=== PATIENT | male | born 1975 | race Caucasian/White ===

== ENCOUNTER → 2018-05-27 | Outpatient (REF) | payer OTHER ==
[2018-05-27 11:57] LABS: BASO % 0.4 % (0.0-1.0); EOS # 0.1 10^3/uL (0.0-0.50); EOS % 1.5 % (0.0-3.0); HEMATOCRIT 42.4 % (42.0-52.0); HEMOGLOBIN 14.9 g/dl (13.5-17.5); IMMATURE GRANULOCYTE % 0.4 % (0-3.0); LYMPH # 1.1 10^3/uL (1.5-4.5); LYMPH % 21.6 % (24.0-44.0); MEAN CORPUSCULAR HEMOGLOBIN 31.8 pg (27.0-33.0); MEAN CORPUSCULAR HGB CONC 35.1 g/dl (32.0-36.5); MEAN CORPUSCULAR VOLUME 90.6 fl (80.0-96.0); MONO # 0.6 10^3/uL (0.0-0.8); MONO % 11.6 % (0.0-5.0); NEUTROPHILS # 3.3 10^3/uL (1.8-7.7); NEUTROPHILS % 64.5 % (36.0-66.0); PLATELET COUNT, AUTOMATED 305 10^3/uL (150-450); RED BLOOD COUNT 4.68 10^6/uL (4.30-6.10); RED CELL DISTRIBUTION WIDTH 11.8 % (11.5-14.5); WHITE BLOOD COUNT 5.2 10^3/uL (4.0-10.0)
[2018-05-29 15:02] LABS: GASTRIN < 10 pg/mL (0-115)
== END ==
LOC: M SFHCPLAZ 09:48
DX: K92.1 Melena (principal)
CPT/HCPCS: 82941

== ENCOUNTER → 2018-06-15 | Outpatient (CLI) | payer OTHER ==
[~2018-06-15] MED LIST: E-Z-PAQUE 96% w/w SUSP 176GM BTL As Ordered
== END ==
LOC: M RAD 07:44
DX: K92.1 Melena (principal)
CPT/HCPCS: 74250

== ENCOUNTER 2019-01-11 01:00 | Emergency (ER) | payer OTHER ==
[~2019-01-11] VITALS: Ht 188 cm; Wt 100.0 kg
[2019-01-11 02:11] LABS: HEMATOCRIT 47.3 % (42.0-52.0); HEMOGLOBIN 16.1 g/dl (13.5-17.5); MEAN CORPUSCULAR HEMOGLOBIN 31.7 pg (27.0-33.0); MEAN CORPUSCULAR VOLUME 93.1 fl (80.0-96.0); PLATELET COUNT, AUTOMATED 249 10^3/uL (150-450); RED BLOOD COUNT 5.08 10^6/uL (4.30-6.10); WHITE BLOOD COUNT 8.8 10^3/uL (4.0-10.0)
[2019-01-11] MEDS ORDERED: carBAMazepine 200 MG TAB PO ONE (02:30)
[2019-01-11] MEDS ORDERED: dexameTHASONE 20 MG/5 ML VIAL (J1100) IV ONE (02:30)
[2019-01-11 02:36] LABS: ALBUMIN 3.6 GM/DL (3.2-5.2); ALT/SGPT 27 U/L (12-78); BILIRUBIN,TOTAL 0.4 MG/DL (0.2-1.0); BLOOD UREA NITROGEN 14 MG/DL (7-18); CALCIUM LEVEL 8.7 MG/DL (8.5-10.1); CARBON DIOXIDE LEVEL 29 MEQ/L (21-32); CHLORIDE LEVEL 103 MEQ/L (98-107); CREATININE FOR GFR 1.28 MG/DL (0.70-1.30); GLOMERULAR FILTRATION RATE > 60.0 (>60); GLUCOSE, FASTING 99 MG/DL (70-100); POTASSIUM SERUM 4.2 MEQ/L (3.5-5.1); SODIUM LEVEL 139 MEQ/L (136-145); TOTAL PROTEIN 7.4 GM/DL (6.4-8.2)
--- NOTE | 2019-01-11 02:37 | REPVR ---
EXAM: CT Head Without Contrast EXAM DATE/TIME: 01/11/2019 1:58 AM CLINICAL HISTORY: 43 years old, male; Pain; Headache; Additional info: Headache with vision changes TECHNIQUE: Axial computed tomography images of the head/brain without contrast. All CT scans at this facility use at least one of these dose optimization techniques: automated exposure control; mA and/or kV adjustment per patient size (includes targeted exams where dose is matched to clinical indication); or iterative reconstruction. COMPARISON: No relevant prior studies available. FINDINGS: Brain: No intracranial mass, mass effect or midline shift. No acute intracranial hemorrhage. No CT evidence of acute cortical infarct. Ventricles, cisterns, and sulci are normal in size for age. Bones/joints: No calvarial fracture or destructive process. Sinuses: Mucosal thickening or fluid is present diffusely in the paranasal sinuses. Mastoid air cells: Mastoid air cells are normally aerated. Orbits: Imaged orbits are unremarkable. Soft tissues: No focal extracranial soft tissue swelling. IMPRESSION: 1. No acute or concerning focal intracranial abnormality. 2. Mild diffuse paranasal sinus fluid and mucosal thickening. Sinusitis can be a source of headaches Electronically signed by: Colton Jacobson On 01/11/2019 02:37:19 AM
[2019-01-11 02:49] LABS: ERYTHROCYTE SEDIMENTATION RATE 7 mm/hr (0-15)
[2019-01-11 04:30] VITALS: BP 125/73
--- NOTE | 2019-01-11 05:49 | REPVR ---
EXAM: MR Head Without Contrast EXAM DATE/TIME: 01/11/2019 3:11 AM CLINICAL HISTORY: 43 years old, male; Signs and symptoms; Weakness, extremity; Left; Patient HX: Lt sided heaviness; Additional info: L trigeminal symptoms TECHNIQUE: MR of the head without contrast. COMPARISON: MRA BRAIN W/O CONTRAST 01/11/2019 4:40 AM FINDINGS: Brain: Normal. No hemorrhage. No significant white matter disease. No edema. Ventricles: Normal. No ventriculomegaly. Bones/joints: Unremarkable. Soft tissues: Normal. Sinuses: There is significant bilateral maxillary sinuses and ethmoidal air cells mucosal thickening. Mastoid air cells: Normal as visualized. No mastoid effusion. Orbits: Unremarkable. Vertebral arteries: The right vertebral artery is tortuous seen coursing to the left anterior and to the left of the left vertebral artery where it is then joined by the left vertebral artery to form the basilar artery. IMPRESSION: 1. No acute intracranial abnormality seen. 2. Markedly tortuous right vertebral artery coursing to the left anterior and extending to the left of the left vertebral artery before joining the left vertebral artery to form the basilar artery. The artery appears to come near the left trigeminal artery however doesn't appear to touch it. 3. Significant bilateral maxillary and ethmoidal sinus mucosal thickening. Correlate with sinusitis. Electronically signed by: Segundo Garrett On 01/11/2019 05:49:12 AM
--- NOTE | 2019-01-11 05:58 | REPVR ---
EXAM: MR Angiogram Head Without Contrast, Arteries EXAM DATE/TIME: 01/11/2019 3:11 AM CLINICAL HISTORY: 43 years old, male; Signs and symptoms; Weakness; Patient HX: Lt sided heaviness; Additional info: L trigeminal symptoms TECHNIQUE: MR angiogram head without contrast. Exam focused on the arteries. COMPARISON: CT Head without contrast 01/11/2019 1:51 AM FINDINGS: Right internal carotid artery: Unremarkable. Intracranial segment is patent with no significant stenosis. No aneurysm. Right anterior cerebral artery: Unremarkable. No occlusion or significant stenosis. No aneurysm. Right middle cerebral artery: Unremarkable. No occlusion or significant stenosis. No aneurysm. Right posterior cerebral artery: Unremarkable. No occlusion or significant stenosis. No aneurysm. Right vertebral artery: Unremarkable. No occlusion or significant stenosis. No aneurysm. Left internal carotid artery: The left superior cerebellar artery appears to be in close proximity of the left trigeminal nerve. Left anterior cerebral artery: Unremarkable. No occlusion or significant stenosis. No aneurysm. Left middle cerebral artery: Unremarkable. No occlusion or significant stenosis. No aneurysm. Left posterior cerebral artery: Unremarkable. No occlusion or significant stenosis. No aneurysm. Left vertebral artery: The right vertebral artery is tortuous extending to the left coursing anterior to the left vertebral artery before curving 180 degrees to the right before joining the left vertebral artery to form the basilar artery. Basilar artery: Unremarkable. No occlusion or significant stenosis. No aneurysm. IMPRESSION: 1. No occlusive arterial disease seen in the cerebral circulation. 2. No aneurysm is seen. 3. Markedly tortuous right vertebral artery extending to the left coursing anterior to the left vertebral artery then curving 180 degrees to the right before joining the left vertebral artery to form the basilar artery. The left superior cerebellar artery appears to be in close proximity of the left trigeminal but without obvious mass effect. Electronically signed by: Segundo Garrett On 01/11/2019 05:58:07 AM
[2019-01-11] MEDS ORDERED: CARB20TA PO (06:25)
--- NOTE | 2019-01-12 18:41 | ECGEPIP ---
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
== END 2019-01-11 06:42 | disposition home or self-care (01) ==
LOC: M ED 01:00
DX: G50.8 Other disorders of trigeminal nerve (principal); G43.109 Migraine with aura, not intractable, without status migrainosus; Q28.3 Other malformations of cerebral vessels
CPT/HCPCS: 70450; 70544; 70551; 80053; 85027; 85652; 93005; 96374; 99284; J1100

== ENCOUNTER → 2019-01-21 | Outpatient (REF) | payer OTHER ==
[~2019-01-21] MED LIST changes: +CARB20TA PO; -E-Z-PAQUE 96% w/w SUSP 176GM BTL As Ordered
[2019-01-21 12:35] LABS: CHOLESTEROL RISK RATIO 5.75 (<5)
== END ==
LOC: M SFHCPLAZ 10:21
PROVIDERS: ATTEND Family Medicine
DX: G45.9 Transient cerebral ischemic attack, unspecified (principal)

== ENCOUNTER → 2019-01-26 | Outpatient (CLI) | payer OTHER ==
--- NOTE | 2019-01-26 14:55 | REP ---
Clinical: Transient ischemic attack . Technique: Diaz scale and color Doppler evaluation using linear high frequency transducer Findings: Two-dimensional diaz scale and color images demonstrate normal arterial lumen with laminar flow and no appreciable narrowing. Color Doppler interrogation demonstrates normal arterial wave patterns and velocities with no significant spectral broadening. Normal flow direction is appreciated in the bilateral vertebral arteries. RIGHT (cm/s) LEFT (cm/s) ICA peak systolic velocity 59.4 53.7 ICA diastolic velocity 25.6 15.2 ECA peak systolic velocity 67.1 85.5 CCA peak systolic velocity 107.0 88.6 ICA/CCA ratio 0.5 0.6 Impression: No hemodynamically significant areas of narrowing or stenosis appreciated. Based on set standards narrowing falls within the less than 50% range. Electronically Signed by Erik Marquez MD 01/26/2019 02:45 P
== END ==
LOC: M RAD 11:53
PROVIDERS: ATTEND Family Medicine
DX: G45.9 Transient cerebral ischemic attack, unspecified (principal)

== ENCOUNTER 2019-06-01 01:35 | Emergency (ER) | payer OTHER ==
[2019-06-01] MEDS ORDERED: KETOROLAC 30 MG/ML VIAL (J1885) IV ONE (02:30)
[2019-06-01] MEDS ORDERED: NS 1,000 ML IV ONE (02:30)
[2019-06-01 02:37] LABS: BASO % 0.4 % (0.0-1.0); EOS # 0.1 10^3/uL (0.0-0.50); EOS % 1.5 % (0.0-3.0); HEMATOCRIT 42.9 % (42.0-52.0); HEMOGLOBIN 15.5 g/dl (13.5-17.5); LYMPH # 1.5 10^3/uL (1.5-4.5); LYMPH % 30.7 % (24.0-44.0); MEAN CORPUSCULAR HEMOGLOBIN 32.6 pg (27.0-33.0); MEAN CORPUSCULAR HGB CONC 36.1 g/dl (32.0-36.5); MEAN CORPUSCULAR VOLUME 90.1 fl (80.0-96.0); MONO # 0.5 10^3/uL (0.0-0.8); MONO % 10.1 % (0.0-5.0); NEUTROPHILS # 2.7 10^3/uL (1.8-7.7); NEUTROPHILS % 57.1 % (36.0-66.0); PLATELET COUNT, AUTOMATED 233 10^3/uL (150-450); RED BLOOD COUNT 4.76 10^6/uL (4.30-6.10); WHITE BLOOD COUNT 4.8 10^3/uL (4.0-10.0)
[2019-06-01] MEDS ORDERED: ISOVUE-370 76% 100ML VIAL (Q9967) As Ordered ONE (02:50)
[2019-06-01 03:00] VITALS: BP 131/62
[2019-06-01 03:10] LABS: BLOOD UREA NITROGEN 11 MG/DL (7-18); CALCIUM LEVEL 8.6 MG/DL (8.5-10.1); CARBON DIOXIDE LEVEL 26 MEQ/L (21-32); CHLORIDE LEVEL 106 MEQ/L (98-107); CK-MB VALUE MASS 1.3 NG/ML (<3.6); CPK CREATINE PHOSPHOKINASE 156 U/L (39-308); CREATININE FOR GFR 1.08 MG/DL (0.70-1.30); GLOMERULAR FILTRATION RATE > 60.0 (>60); GLUCOSE, FASTING 99 MG/DL (70-100); MB/CK RELATIVE INDEX 0.83 (< OR =4); POTASSIUM SERUM 3.8 MEQ/L (3.5-5.1); SODIUM LEVEL 140 MEQ/L (136-145); TROPONIN I < 0.02 NG/ML (< 0.10)
--- NOTE | 2019-06-01 05:43 | ECGEPIP ---
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
== END 2019-06-01 03:42 | disposition left against medical advice (07) ==
LOC: M ED 01:35
DX: R07.89 Other chest pain (principal); R55 Syncope and collapse; F10.229 Alcohol dependence with intoxication, unspecified; Y90.0 Blood alcohol level of less than 20 mg/100 ml
CPT/HCPCS: 80048; 82550; 82553; 84484; 85025; 93005; 93041; 94760; 96360; 99284; G0480

== ENCOUNTER → 2021-03-12 | Outpatient (CLI) | payer OTHER ==
--- NOTE | 2021-03-12 13:28 | REP ---
INDICATION: ALLERGIC RHINITIS, UNSPECIFIED. COMPARISON: None. TECHNIQUE: Plain film of the paranasal sinuses. FINDINGS: Paranasal sinuses appear clear. Nasal septum appears midline. No definite fluid levels. The visualized calvarium appears unremarkable. IMPRESSION: No acute findings. No plain film evidence of sinusitis. If symptoms persist, CT sinuses recommended. <Electronically signed by Gordon Peace > 03/12/21 [id number]
== END ==
LOC: M RAD 13:00
PROVIDERS: ATTEND Physician Assistant
DX: J30.9 Allergic rhinitis, unspecified (principal)

== ENCOUNTER 2021-04-16 04:37 | Emergency (ER) | payer OTHER ==
[~2021-04-16] VITALS: Ht 182.9 cm; Wt 105.9 kg
[2021-04-16] MEDS ORDERED: KETOROLAC 60MG 2ML VIAL IM ONE (05:00)
[2021-04-16] MEDS ORDERED: CYCLOBENZAPRINE 10MG TABLET PO ONE (05:00)
[2021-04-16] MEDS ORDERED: LIDOCAINE 5% (LIDODERM) PATCH TD ONE (05:05)
[2021-04-16] MEDS ORDERED: IBUP80TA PO (05:15)
[2021-04-16] MEDS ORDERED: CYCL-707 PO (05:15)
[2021-04-16] MEDS ORDERED: LIDO5DIS41 TOP (05:16)
[2021-04-16 05:20] VITALS: BP 123/82
[2021-04-16] MEDS ORDERED: **NOTE PATIENT COMMENT** MISC XX SCH (21:00)
== END 2021-04-16 05:49 | disposition home or self-care (01) ==
LOC: M ED 04:37
DX: S39.012A Strain of muscle, fascia and tendon of lower back, initial encounter (principal); X58.XXXA Exposure to other specified factors, initial encounter; Y92.89 Other specified places as the place of occurrence of the external cause; Y99.0 Civilian activity done for income or pay
CPT/HCPCS: 96372; 99283; J1885

== ENCOUNTER → 2021-04-20 | Outpatient (REF) ==
[~2021-04-20] MED LIST changes: +CYCL-707 PO; +IBUP80TA PO; +LIDO5DIS41 TOP
[2021-04-20 20:00] LABS: INFLUENZA A AMPLIFICATION NEGATIVE (NEGATIVE); INFLUENZA B AMPLIFICATION NEGATIVE (NEGATIVE)
== END ==
LOC: M LAB 10:07